=== PATIENT | female | born 1955 | race Caucasian/White ===

== ENCOUNTER 2020-02-03 09:49 | Emergency (ER) | payer OTHER ==
[~2020-02-03] VITALS: Ht 167.6 cm; Wt 77.1 kg
[2020-02-03] MEDS ORDERED: COZAAR 25 MG TA25 M1 PO (10:02)
[2020-02-03] MEDS ORDERED: CALCIUM500 MG PO (10:02)
[2020-02-03] MEDS ORDERED: SUPER THERAVIT1 EACH PO (10:03)
[2020-02-03] MEDS ORDERED: EVISTA60 MG PO (10:23)
[2020-02-03] MEDS ORDERED: HYDROCODON-ACE1 EAC7 PO (13:59)
[2020-02-03 14:34] VITALS: BP 134/77
== END 2020-02-03 14:34 | disposition home or self-care (01) ==
LOC: M.ERS 09:49
DX: S62.615A Displaced fracture of proximal phalanx of left ring finger, initial encounter for closed fracture (principal); S62.617A Displaced fracture of proximal phalanx of left little finger, initial encounter for closed fracture; S61.217A Laceration without foreign body of left little finger without damage to nail, initial encounter; S70.312A Abrasion, left thigh, initial encounter; S80.212A Abrasion, left knee, initial encounter; Z88.1 Allergy status to other antibiotic agents; W01.0XXA Fall on same level from slipping, tripping and stumbling without subsequent striking against object, initial encounter; Y93.89 Activity, other specified; Y92.89 Other specified places as the place of occurrence of the external cause; Y99.8 Other external cause status